=== PATIENT | female | born 1960 | race Asian ===

== ENCOUNTER 2016-09-23 03:39 | Emergency (ER) | payer OTHER ==
[~2016-09-23] VITALS: Ht 139.7 cm; Wt 41.9 kg
[~2016-09-23 03:39] MED LIST: CEFD300C37 PO; OLME20TA PO
[2016-09-23 03:41] VITALS: BP 186/96
[2016-09-23] MEDS ORDERED: MULT-257 PO (04:17)
== END 2016-09-23 04:46 ==
LOC: ED 04:15
DX: R20.9 Unspecified disturbances of skin sensation (principal); I10 Essential (primary) hypertension
CPT/HCPCS: 99281